=== PATIENT | female | born 1955 ===

== ENCOUNTER 2018-05-20 07:30 | Outpatient (CLI) | payer OTHER ==
[~2018-05-20] VITALS: Ht 137.2 cm; Wt 57.6 kg
== END 2018-05-20 07:45 | disposition home or self-care (01) ==
LOC: OFIC 805 07:30
DX: R22.1 Localized swelling, mass and lump, neck (principal); J31.0 Chronic rhinitis; Q18.0 Sinus, fistula and cyst of branchial cleft

== ENCOUNTER 2018-05-26 10:29 | Outpatient (CLI) | payer OTHER | END 2018-05-26 10:34 | disposition home or self-care (01) | LOC: SONOGRAMA 10:29 | DX: R22.1 Localized swelling, mass and lump, neck (principal) ==

== ENCOUNTER 2018-05-28 08:51 | Outpatient (CLI) | payer OTHER | END 2018-05-28 08:55 | disposition home or self-care (01) | LOC: LAB 08:51 | DX: N20.0 Calculus of kidney (principal) ==

== ENCOUNTER 2018-06-03 07:31 | Outpatient (CLI) | payer OTHER ==
[~2018-06-03] VITALS: Ht 137.2 cm; Wt 57.6 kg
[2018-06-03] MEDS ORDERED: NAPROXEN SODIU550 M1 PO (09:29)
== END 2018-06-03 07:45 | disposition home or self-care (01) ==
LOC: OFIC 805 07:31
DX: R22.1 Localized swelling, mass and lump, neck (principal); J31.0 Chronic rhinitis

== ENCOUNTER → 2018-06-03 | Outpatient (CLI) | payer OTHER ==
[~2018-06-03] MED LIST: NAPROXEN SODIU550 M1 PO
== END | disposition home or self-care (01) ==
LOC: NUCLEAR 05-28 11:30
DX: M81.0 Age-related osteoporosis without current pathological fracture (principal); Z13.820 Encounter for screening for osteoporosis

== ENCOUNTER 2018-06-17 07:21 | Outpatient (CLI) | payer OTHER ==
[~2018-06-17] VITALS: Ht 121.9 cm; Wt 57.6 kg
== END 2018-06-17 07:40 | disposition home or self-care (01) ==
LOC: OFIC 805 07:21
DX: R22.1 Localized swelling, mass and lump, neck (principal); J31.0 Chronic rhinitis; Q18.0 Sinus, fistula and cyst of branchial cleft